=== PATIENT | female | born 1970 | race Caucasian/White ===

== ENCOUNTER 2021-01-03 15:20 | Outpatient (CLI) | payer OTHER, SELFPAY ==
--- NOTE | ~2021-01-03 | MM_ITS ---
EXAMINATION: MM screening [facility] BI [facility] HISTORY: Screening TECHNIQUE: Craniocaudal and mediolateral oblique 3-D tomosynthesis images were obtained and synthetic 2-D images were generated. CAD analysis was submitted and interpreted. COMPARISON: Comparison to multiple prior studies sequentially, with oldest reviewed study dated 12/04. BREAST PARENCHYMAL COMPOSITION: There are scattered areas of fibroglandular density. FINDINGS: There is no evidence of suspicious mass, calcification, or architectural distortion to sugg est malignancy in either breast. There has been no suspicious interval change. IMPRESSION: 1. No mammographic evidence of malignancy. 2. Recommend routine screening mammography in one year. BI-RADS Category 1: Negative Reviewed, dictated and finalized at location A.
== END 2021-01-03 15:21 | disposition home or self-care (01) ==
PROVIDERS: PCP Internal Medicine; Visit Provider Obstetrics & Gynecology
DX: Z12.31 Encounter for screening mammogram for malignant neoplasm of breast (principal)
CPT/HCPCS: 77063; 77067

== ENCOUNTER 2021-12-27 08:58 | Outpatient (CLI) | payer OTHER, SELFPAY ==
[2021-12-27 09:41] LABS: Alanine Aminotransferase 21 U/L (6-35); Albumin Level 4.3 g/dL (3.5-5.1); Alkaline Phosphatase 97 U/L (38-126); Anion Gap 5 mmol/L (8-16); Aspartate Amino Transferase 27 U/L (14-36); Bilirubin,Total 0.3 mg/dL (0.2-1.3); Blood Urea Nitrogen 9 mg/dL (7-17); Calcium 8.9 mg/dL (8.4-10.2); Carbon Dioxide 27 mmol/L (22-30); Chloride 106 mmol/L (98-107); Cholesterol 184 mg/dL (0-200); Creatine Kinase 34 U/L (30-135); Estimated Glomerular Filt Rate > 60; Glucose 116 mg/dL (65-110); HDL Direct 54 mg/dL; Potassium 4.8 mmol/L (3.4-5.0); Sodium 138 mmol/L (137-145); Triglycerides 188 mg/dL (<150)
[2021-12-27 09:51] LABS: LDL Cholesterol Direct 82 mg/dL
[2021-12-27 10:30] LABS: Appearance Urine Slightly Cloudy (Clear); Bilirubin Urine Negative (Negative); Glucose Urine UA Negative (Negative); Ketones Urine Negative (Negative); Leukocyte Esterase Ur Negative LEU/UL (Negative); Nitrate Urine Negative (Negative); Protein Urine Negative (Negative); Specific Grav Ur <= 1.005 (1.001-1.035); Urobilinogen Urine 0.2 mg/dL (<2.0); pH Urine 5.5 (5.0-9.0)
[2021-12-27 10:31] LABS: Add Urine Microscopic? YES; Blood Urine Trace-Intact (Negative); Color Urine Light Yellow (Yellow)
[2021-12-27 10:39] LABS: Bacteria Urine Trace /hpf; Mucus Urine Rare /lpf; RBC Urine 0-2 /hpf (0-2); Squamous Epithelial Cell Urine Few /hpf (Few); WBC Urine 0-3 /hpf
== END 2021-12-27 08:59 | disposition home or self-care (01) ==
LOC: ANHLAB 09:06
PROVIDERS: PCP Internal Medicine; Visit Provider Nurse Practitioner Family
DX: E78.5 Hyperlipidemia, unspecified (principal); R82.90 Unspecified abnormal findings in urine
CPT/HCPCS: 36415; 80053; 80061; 81001; 82550

== ENCOUNTER 2022-01-30 00:36 | Day surgery (SDC) | payer OTHER, SELFPAY ==
[2022-01-13 13:06] VITALS: BMI 39.2
[2022-01-30] MEDS: LACTATED RINGERS 1,000 ML 150 ML IV CONT (07:13)
[2022-01-30 07:30] VITALS: BP 146/85; PULSE 79; RESP 16; O2SAT 98
--- NOTE | 2022-01-30 07:44 | P.PNAN_ITS ---
Anes - Initial Pre Proc Eval Procedure: Operation Date: 01/30/22 08:00 Proposed Procedures p Screening Colonoscopy - Howard Tee MD Date/Time: 01/30/22 07:44 Surgeon: Howard Tee MD Pre Op Diagnosis: neoplasm screening Patient Data Age: 51 Gender: F Height: 1.52 m Weight: 100.1 kg Allergies Allergy/AdvReac Type Severity Reaction Status Date / Time No Known Allergies Allergy Unverified 01/30/22 07:00 Home Medications Medication Instructions Recorded Confirmed Type amlodipine 10 mg tablet 10 mg PO DAILY 01/13/22 01/13/22 History atorvastatin 10 mg tablet 10 mg PO DAILY 01/13/22 01/13/22 History cholecalciferol (vitamin D3) 25 25 mcg PO DAILY 01/13/22 01/13/22 History mcg (1,000 unit) tablet (Vitamin D3) tolterodine 2 mg tablet 4 mg PO DAILY 01/13/22 01/13/22 History Patient hx anesthesia problems: none Family hx anesthesia problems: none Results Review: All pre-operative results and documents have been reviewed as part of the pre-operative evaluation. [facility] Past Medical History Medical History (Updated 01/30/22 @ 07:45 by Gabriel Meza MD) Anemia HTN (hypertension) Hyperlipidemia Morbid obesity with BMI of 40.0-44.9, adult Social History Social History Smoking status: Never smoker Substance use type: does not use Living arrangements: with family Spiritual care concerns: No Anes - Eval Final PreProcedure Day of Procedure 01/30/22 07:44 Patient weight: obese Heart: regular rate and rhythm Lungs: clear to auscultation and normal air movement Airway: Mallampati scale class II Neurological: alert and oriented Last oral intake: >/= 8 hours ASA classification: III Emergent: no Anesthetic plan: proceed Anesthesia type and monitoring: general GIVS Results Review: All pre-operative results and documents have been reviewed as part of the pre- operative evaluation. Informed Consent: The patient's anesthetic plan and its attendant risks and benefits were discussed with the patient/family/POA. Questions were solicited and answers provided to the satisfaction of the patient/family/POA.
--- NOTE | 2022-01-30 07:49 | PM.IMHP ---
H&P: HPI History of Present Illness Date/Time: 01/30/22 07:49 Chief Complaint: Family history of colon cancer Narrative: this is 51-year-old white female patient presents for colonoscopy. Family history is significant her mother had colon cancer. Additionally family member such as her sister have had colon polyps. Patient presents today for surveillance colonoscopy. Patient reports that her current weight appetite and bowel movements are normal. Patient denies abdominal pain. She has had no bleeding. Family history as stated. Review of Systems Review of Systems: Review of systems noncontributory. [facility] Past Medical History Medical History (Updated 01/30/22 @ 07:50 by Howard Tee MD) Anemia HTN (hypertension) Hyperlipidemia Morbid obesity with BMI of 40.0-44.9, adult Social History Social History Smoking status: Never smoker Substance use type: does not use Living arrangements: with family Spiritual care concerns: No Meds Home Medications and Allergies Home Medications Medication Instructions Recorded Confirmed Type amlodipine 10 mg tablet 10 mg PO DAILY 01/13/22 01/13/22 History atorvastatin 10 mg tablet 10 mg PO DAILY 01/13/22 01/13/22 History cholecalciferol (vitamin D3) 25 25 mcg PO DAILY 01/13/22 01/13/22 History mcg (1,000 unit) tablet (Vitamin D3) tolterodine 2 mg tablet 4 mg PO DAILY 01/13/22 01/13/22 History Allergies Allergy/AdvReac Type Severity Reaction Status Date / Time No Known Allergies Allergy Unverified 01/30/22 07:00 Exam Narrative: Physical exam reveals patient to be alert. Vital signs stable. HEENT exam is unremarkable. Patient is anicteric. Lungs are clear to auscultation and percussion. Heart is without murmur or extra sounds. Abdominal exam bowel sounds present soft nontender with no organomegaly. Digital external rectal exam is normal. Assessment and Plan Assessment and plan (1) Family history of colon cancer in mother: Code(s): Z80.0 - Family history of malignant neoplasm of digestive organs Status: Acute Assessment and Plan: Patient's mother had colon cancer. Her sister had colon polyps. Plan is for surveillance colonoscopy now consider this a 5 year intervals in the future. Further recommendations may be given after endoscopy.
[2022-01-30 08:13] VITALS: BP 118/74; PULSE 69; RESP 21; O2SAT 98
[2022-01-30 08:23] VITALS: BP 134/84; PULSE 70; RESP 16; O2SAT 98
[2022-01-30 08:33] VITALS: BP 140/82; PULSE 68; RESP 20; O2SAT 100
== END 2022-01-30 08:49 | disposition home or self-care (01) ==
PROVIDERS: PCP Internal Medicine; Visit Provider Internal Medicine Gastroenterology
PROC: 0DJD8ZZ Inspection of Lower Intestinal Tract, Via Natural or Artificial Opening Endoscopic (ICD-10-PCS; CPT 45378; principal; 2022-01-30 08:00)
DX: Z12.11 Encounter for screening for malignant neoplasm of colon (principal); Z80.0 Family history of malignant neoplasm of digestive organs; K63.5 Polyp of colon; D64.9 Anemia, unspecified; I10 Essential (primary) hypertension; E78.5 Hyperlipidemia, unspecified; E66.9 Obesity, unspecified; Z68.41 Body mass index [BMI] 40.0-44.9, adult
CPT/HCPCS: 45385; 88305; J2704; J7120

== ENCOUNTER 2022-02-13 08:52 | Outpatient (CLI) | payer OTHER, SELFPAY ==
--- NOTE | ~2022-02-13 | MM_ITS ---
EXAMINATION: MM screening [facility] BI w reed HISTORY: Screening mammogram TECHNIQUE: Craniocaudal and mediolateral oblique 3-D tomosynthesis images were obtained and synthetic 2-D images were generated. CAD analysis was submitted and interpreted. COMPARISON: 01/03/2021, 07/15/2019, 05/13/2018 BREAST PARENCHYMAL COMPOSITION: There are scattered areas of fibroglandular density. FINDINGS: There is no suspicious mass, calcification, or architectural distortion to suggest malignan cy in either breast. There has been no suspicious interval change. IMPRESSION: 1. No mammographic evidence of malignancy. 2. Recommend routine screening mammography in one year. BI-RADS Category 1: Negative Reviewed, dictated and finalized at location A.
== END 2022-02-13 08:53 | disposition home or self-care (01) ==
LOC: ANHIMG 08:53
PROVIDERS: PCP Internal Medicine; Visit Provider Obstetrics & Gynecology
DX: Z12.31 Encounter for screening mammogram for malignant neoplasm of breast (principal)
CPT/HCPCS: 77063; 77067

== ENCOUNTER 2023-04-30 14:48 | Outpatient (CLI) | payer OTHER, SELFPAY ==
--- NOTE | ~2023-04-30 | MM_ITS ---
EXAMINATION: MM screening [facility] HISTORY: Screening mammogram TECHNIQUE: Craniocaudal and mediolateral oblique 3-D tomosynthesis images were obtained and synthetic 2-D images were generated. CAD analysis was submitted and interpreted. COMPARISON: 02/13/2022, 01/03/2021, 07/15/2019 bilateral screening mammogram examinations BREAST PARENCHYMAL COMPOSITION: There are scattered areas of fibroglandular density. FINDINGS: There is no evidence of suspicious mass, calcification, or architectural distortion to sugg est malignancy in either breast. There has been no suspicious interval change. IMPRESSION: 1. No mammographic evidence of malignancy. 2. Recommend routine screening mammography in one year. BI-RADS Category 1: Negative. Reviewed, dictated and finalized at location A.
== END 2023-04-30 14:49 | disposition home or self-care (01) ==
LOC: ANHIMG 14:52
PROVIDERS: PCP Internal Medicine; Visit Provider Obstetrics & Gynecology
DX: Z12.31 Encounter for screening mammogram for malignant neoplasm of breast (principal)
CPT/HCPCS: 77063; 77067

== ENCOUNTER 2024-06-19 09:22 | Outpatient (CLI) | payer OTHER, SELFPAY ==
--- NOTE | ~2024-06-19 | MM_ITS ---
EXAMINATION: MM screening [facility] HISTORY: Screening TECHNIQUE: Craniocaudal and mediolateral oblique 3-D tomosynthesis images were obtained and synthetic 2-D images were generated. CAD analysis was submitted and interpreted. COMPARISON: Comparison to multiple prior studies sequentially, with oldest reviewed study dated 09/2016. BREAST PARENCHYMAL COMPOSITION: Not dense: There are scattered areas of fibroglandular density. FINDINGS: There is no evidence of suspicious mass, calcification, or architectural distortion to sugg est malignancy in either breast. There has been no suspicious interval change. IMPRESSION: 1. No mammographic evidence of malignancy. 2. Recommend routine screening mammography in one year. BI-RADS Category 1: Negative Reviewed, dictated and finalized at location B. P PREPARER
== END 2024-06-19 09:23 | disposition home or self-care (01) ==
LOC: ANHIMG 09:22
PROVIDERS: PCP Internal Medicine; Visit Provider Obstetrics & Gynecology
DX: Z12.31 Encounter for screening mammogram for malignant neoplasm of breast (principal)
CPT/HCPCS: 77063; 77067

== ENCOUNTER 2025-06-24 09:19 | Outpatient (CLI) | payer OTHER, SELFPAY ==
--- NOTE | ~2025-06-24 | MM_ITS ---
EXAMINATION: MM screening anthony BI w reed HISTORY: Screening TECHNIQUE: Craniocaudal and mediolateral oblique 3-D tomosynthesis images were obtained and synthetic 2-D images were generated. CAD analysis was submitted and interpreted. COMPARISON: Comparison to multiple prior studies sequentially, with oldest reviewed study dated , 07/15/2019 BREAST PARENCHYMAL COMPOSITION: Not Dense: There are scattered areas of fibroglandular density. FINDINGS: There is no evidence of suspicious mass, calcification, or architectural distortion to suggest malignancy in either breast. IMPRESSION: 1. No mammographic evidence of malignancy. 2. Recommend routine screening mammography in one year. BI-RADS Category 1: Negative Reviewed, dictated and finalized at location A. HER
--- OUTSIDE RECORDS SUMMARY | 2025-06-24 10:21 | XMS_ITS | Clinical Summary ---
Author Organization [facility] Address [address] [place] [address] Care Team Providers Care Wheel Cleaner Name Role Phone Unavailable Primary Care Provider Unavailabl e Social History Tobacco Use Types Packs/Day Years Used Date Smoking Tobacco: Never Assessed Comments Unknown Sex and Gender Information Value Date Recorded Sex Assigned at Not on file Legal Sex Female 10:31 AM SPORTS ACTIVITIES FOUL JUDGE Gender Identity Not on file Sexual Orientation Not on file Plan of Treatment Health Maintenance Due Date Last Done Comments Hepatitis C Virus (HCV) Screening 1970 TdaP Immunization 1970 Hepatitis B Immunization (1 of 3 - 19+ 3-dose series) 1989 Pap Smear 09/11/1991 Cervical Cancer Screening (CCS) 2000 HPV/Cotest 2000 Cologuard 09/11/2015 Colonoscopy 09/11/2015 Colorectal Cancer Screening 09/11/2015 Immunochemical Fecal Occult Blood 09/11/2015 Pneumococcal Immunization (5 0+ years) (1 of 1 - PCV) 2020 Zoster Immunization (1 of 2) 2020 Influenza Immunization (#1) 2025 SARS-COV-2 Immunization ( - season) 2025 Respiratory Syncytial Virus (RSV) Immunization (Adult) (1 - 1-dose 75+ series) 2045 Human Papillomavirus (HPV) Immunization Aged Out No longer eligible b ased on patient's age to complete this topic Meningococcal Immunization (ACWY) Aged Out No longer eligible based on patient's age to complete this topic Rotavirus Immunization Aged Out No lo nger eligible based on patient's age to complete this topic
--- OUTSIDE RECORDS SUMMARY | 2025-06-24 10:21 | XMS_ITS | Encounter Summary ---
Author Organization [facility] Address On license of [facility] [place] [address] Care Team Providers Care Coding Compliance Specialist Name Role Phone Danita Mari Primary Care Provider [phone] Encounter Details Date Type Department Care Team (Late st Contact Info) Description 01/11/2021 MyChart Message Enc [facility] Medical Group Family & Internal Medicine [facility] [address] [place] [address] Danita Mari FNP [address] [place], [place] [id number] Follow Up/Update Social History Tobacco Use Types Packs/Day Years Used Date Smoking Tobacco: Never Smokeless Tobacco: Never Alcohol Use Standard Drinks/Week Comments Not Currently 0 (1 standard drink = 0.6 oz pur e alcohol) AUDIT-C Answer Date Recorded Q1: How often do you have a drink containing alc ohol? Never 10/18/2020 Average Number of Drinks Not on file 021 Frequency of Binge Drinking Not on file 10/07 PHQ-2 Answer Date Recorded PHQ-2 Score - If the patient scores above 3, please move on to questions 3-9 0 10/18/2020 Comments No Sex and Gender Information Value Date Recorded Sex Assigned at Female 08/08/2024 12:58 PM GATEHOUSE ATTENDANT Legal Sex Female 5:36 PM CDT Gender Identity Not on file Sexual Orientation Not on file COVID-19 Exposure Response Date Recorded In the last month, have you been in contact with someone who was confirmed or suspected to have Coronavirus / COVID-19? No / Unsure 01/06/2021 7:05 AM CDT documented as of this encounter Plan of Treatment Upcoming Encounters Date Type Department Care Team (Late st Contact Info) Description 07/17/2025 12:15 PM GATEHOUSE ATTENDANT Office Visit [facility] [place] [address] [place] [address] Karolina Ley PA-C [address] [facility], [address] [place] [address] documented as of this encounter Visit Diagnoses Not on filedocumented in this encounter Care Teams Coding Compliance Specialist Relationship Specialty Start Date End Date Danita Mari FNP [address] [place] [address] PCP - General Nurse Practitioner Family 08/20/20 documented as of this encounter
--- OUTSIDE RECORDS SUMMARY | 2025-06-24 10:21 | XMS_ITS | Clinical Summary ---
Author Organization [facility] Address [address] [place] [address] Care Team Providers Care Life Educator Name Role Phone Danita Mari MEHRAN Primary Care Provider [phone] Allergies No known active allergies Medications Cholecalciferol (VITAMIN D) 50 MCG (1999 UT) Tab Take 1.5 tablets (3,000 Units total) by mouth. Active Multiple Vitamins-Minerals (HAIR SKIN AND NAILS FORMULA OR) Ac tive amLODIPine (NORVASC) 10 MG tabletIndications :Essential hypertension TAKE 1 TABLET(10 MG) BY MOUTH EVERY EVENING 90 tablet 3 4 Active tirzepatide (MOUNJARO) 5 MG/0.5ML injectionIndicati ons:Diabetes Mellitus Inject 5 mg into the skin once a week. Indications: Diabetes Active progesterone (PROMETRIUM) 100 MG capsule Take 2 capsules (200 mg total) by mouth daily. Active spironolactone (ALDACTONE) 25 MG tablet TAKE 1 TABLET BY MOUTH TWICE DAILY 180 tablet 5 Active Active Problems Problem Noted Date Diagnosed Date Obstructive sleep apnea 04/18/2023 Pure hypercholesterolemia 04/17/2023 Lower leg edema 04/17/2023 Abnormality of shape of nail 04/12/2023 Atypical chest pain 11/23/2020 Family history of cardiac disorder 11/23/2020 BMI 45.0-49.9, adult 10/20/2020 Essential hypertension 10/20/2020 Vitamin D deficiency 11/17/2016 Elevated glucose 11/16/2016 Overactive bladder 11/06/2016 Precordial pain Resolved Problems Problem Noted Date Diagnosed Date Resolved Date Dyspnea on exertion 11/23/2020 11/12/19 Screening cholesterol level 11/06/2016 10/25/2020 Rash 11/06/2016 10/20/2020 Bronchitis 08/12/2013 10/20/2020 Onychomycosis of toenail 04/29/2012 Hypertension 11/11/2021 Immunizations Immunization Administration Dates Next Due Tdap (Adacel) 11/11/2021 Family History Medical History Relation Comments Hypertension Father Stent Cardiac Maternal Grandmother Cancer Mother colon Heart Attack Paternal Grandfather Relation Status Comments Father Alive Maternal Grandfather (Age 71) Maternal Grandmother (Age 73) Mother Alive Paternal Grandfather (Age 70) Paternal Grandmother (Age 82) Sister Alive Social History Tobacco Use Types Packs/Day Years Used Date Smoking Tobacco: Never Smokeless Tobacco: Never Tobacco Cessation:Counseling Given: Not Answered Alcohol Use Standard Drinks/Week Comments Not Currently 0 (1 standard drink = 0.6 oz pur e alcohol) AUDIT-C Answer Date Recorded Q1: How often do you have a drink containing alc ohol? Never 10/18/2020 Average Number of Drinks Not on file 021 Frequency of Binge Drinking Not on file 10/07 PHQ-2 Answer Date Recorded Patient Health Questionnaire-2 Score 0 04/12/2023 Comments No Sex and Gender Information Value Date Recorded Sex Assigned at Female 08/08/2024 12:58 PM STRIP POLISHER Legal Sex Female 5:36 PM CDT Gender Identity Not on file Sexual Orientation Not on file Last Filed Vital Signs Vital Sign Reading Time Taken Comments Blood Pressure 132/80 08/08/2024 1:06 PM STRIP POLISHER Pulse 88 08/08/2024 1:06 PM STRIP POLISHER Temperature 36.6 C (97.8 F) 04/12/2023 3:13 PM CDT Respiratory Rate 16 04/12/2023 3:13 PM CDT Oxygen Saturation 97% 08/08/2024 1:06 PM STRIP POLISHER Inhaled Oxygen Concentration - - Weight 101.2 kg (223 lb) 08/08/2024 1:06 PM STRIP POLISHER Height 152.4 cm (5') 08/08/2024 1:06 PM STRIP POLISHER Body Mass Index 43.55 08/08/2024 1:06 PM STRIP POLISHER Plan of Treatment Upcoming Encounters Date Type Department Care Team (Late st Contact Info) Description 07/17/2025 12:15 PM STRIP POLISHER Office Visit [facility] [facility] [place] [address] [place] [address] Karolina Ley PA-C 3 [facility], [address] [place], [place] [id number] Health Maintenance Due Date Last Done Comments Cervical Cancer Screening Pap Smear (Age 30 to 64) Every 3 Years 1970 Annual Physical 1973 Hepatitis B Vaccines (1 of 3 - 19+ 3-dose series) 1989 Cervical Cancer Screening Pap with HPV Testing (Age 30 to 64) Every 5 Years 2000 Cervical Cancer Screening with HPV 2000 Pneumococcal Vaccine: 50+ Years (1 of 1 - PCV) 2020 Zoster Vaccines (1 of 2) 2020 PHQ-2 (Physician [place]) 07/09/2024 COVID-19 Vaccine (3 - season) 2025 03/22/2021, 03/01/2021 Influenza Adult (#1) 2025 Mammogram Screening 06/19/2026 06/19/2024, 04/30/2023, 02/13/2022, Additional history exists DTaP, Tdap and Td Vaccines (2 - Td or Tdap) 11/12/2031 11/11/2021 Colorectal Cancer Screening Colonoscopy (10 Years) 01/31/2032 01/30/2022 Hepatitis C Completed 11/23/2021 Hepatitis A Vaccines Aged Out No long er eligible based on patient's age to complete this topic Meningococcal B Vaccine Aged Out No l onger eligible based on patient's age to complete this topic Meningococcal Vaccine Aged Out No orladno yinka eligible based on patient's age to complete this topic RSV Immunizations Under 20 Months Aged Out No longer eligible based on patient's age to complete this topic Procedures Procedure Name Priority Date/Time Associated Diagnosis Comments MAMMOGRAM GENERIC (SCAN ORDER) 06/19/2024 COLONOSCOPY GENERIC (SCAN ORDER) 01/30/2022 HEPATITIS C ANTIBODY Routine 11/23/2021 7:42 AM CDT Need for hepatitis C screening test from Last 3 Months or Most Recently Relevant to Health Maintenance Results * MAMMOGRAM GENERIC (SCAN ORDER) (06/19/2024) Anatomical Region Laterality Modality Other 06/19/2024 us [facility] Scanned SCANNING Final Resu lt * COLONOSCOPY GENERIC (01/30/2022) 01/30/2022 Narrative 01/30/2022 Ordered by an unspecified provider. us Documents Scanned SCANNING Final Result * HEPATITIS C AB ([facility] ONLY) (11/23/2021 7:42 AM CDT) HEPATITIS C AB NON-REACTI VE NON-REACT IRVIN 11/23/2021 9:15 PM CDT [facility] Comment: ANTIBODIES TO HCV NOT DETECTED. DOES NOT EXCLUDE THE POSSIBILITY OF EXPOSURE TO HCV. 11/23/2021 7:42 AM CDT us [facility] Final Result [facility] [address] [place] [address], [id number] from Last 3 Months or Most Recently Relevant to Health Maintenance Insurance [facility] Care Teams Life Educator Relationship Specialty Start Date End Date Danita Mari FNP [address] [place] [id number] PCP - General Nurse Practitioner Family 08/20/20
--- OUTSIDE RECORDS SUMMARY | 2025-06-24 10:21 | XMS_ITS | Encounter Summary ---
Author Organization [facility] Address [facility] [place] [address] Care Team Providers Care Computing Systems Mechanic Name Role Phone Danita Mari Primary Care Provider Encounter Details Date Type Department Care Team (Late st Contact Info) Description 11/12/2020 MyChart Message Enc [facility] Medical Group Family & Internal Medicine [facility] [address] [place] [address] Danita Mari FNP [address] [place], [place] [phone] RE: Question Social History Tobacco Use Types Packs/Day Years [...] on to questions 3-9 0 10/18/2020 Comments Unknown Sex and Gender Information Value Date Recorded Sex Assigned at Female 08/08/2024 12:58 PM CARROTER Legal Sex Female 5:36 PM CDT Gender Identity Not on file Sexual Orientation Not on file COVID-19 Exposure Response Date Recorded In the last month, have you been in contact with someone who was confirmed or suspected to have Coronavirus / COVID-19? No / Unsure 11/03/2020 10:10 AM CDT documented as of this encounter Plan of Treatment Upcoming Encounters Date Type Department Care Team (Late st Contact Info) Description 07/17/2025 12:15 PM CARROTER Office Visit [facility] [place] [address] [place] [address] Karolina Ley PA-C 3 [facility], [address] [place] [address] documented as of this encounter Visit Diagnoses Not on filedocumented in this encounter Care Teams Computing Systems Mechanic Relationship Specialty Start Date End Date Danita Mari FNP [address] [place] [phone] PCP - General Nurse Practitioner Family 08/20/20 documented as of this encounter
--- OUTSIDE RECORDS SUMMARY | 2025-06-24 10:21 | XMS_ITS | Encounter Summary ---
Author Organization [facility] Address [facility] [place] [address] Care Team Providers Care Farmer Cash Grain Name Role Phone Danita Mari Primary Care Provider [phone] Encounter Details Date Type Department Care Team (Late st Contact Info) Description 05/13/2018 Abstract HEALTH INFO [facility] Scanned, Documents Social History Tobacco Use Types Packs/Day Years Used Date Smoking Tobacco: Never Assessed Comments Unknown Sex and Gender Information Value Date Recorded Sex Assigned at Female 08/08/2024 12:58 PM ELECTRONIC PUBLISHER Legal Sex Female 5:36 PM CDT Gender Identity Not on file Sexual Orientation Not on file documented as of this encounter Plan of Treatment Upcoming Encounters Date Type Department Care Team (Late st Contact Info) Description 07/17/2025 12:15 PM ELECTRONIC PUBLISHER Office Visit [facility] [facility] [place] [address] [place], [place] [address] Karolina Ley PA-C 3 [facility], [address] [place] [address] documented as of this encounter Visit Diagnoses Not on filedocumented in this encounter Care Teams Farmer Cash Grain Relationship Specialty Start Date End Date Danita Mari FNP [address] [place] [id number] PCP - General Nurse Practitioner Family 08/20/20 documented as of this encounter
--- OUTSIDE RECORDS SUMMARY | 2025-06-24 10:22 | XMS_ITS | Encounter Summary ---
Author Organization [facility] Address [facility] [place] [address] Care Team Providers Care Epic Prelude Analyst Name Role Phone Danita Mari MEHRAN Primary Care Provider [phone] Encounter Details Date Type Department Care Team ([facility] Contact Info) Description 04/03/2023 Abstract [facility] [address] Stefanie Tang [place] Social History Tobacco Use Types Packs/Day Years Used Date Smoking Tobacco: Never Smokeless Tobacco: Never Alcohol Use Standard Drinks/Week Comments Not Currently 0 (1 standard drink = 0.6 oz pur e alcohol) AUDIT-C Answer Date Recorded Q1: How often do you have a drink containing alc ohol? Never 10/18/2020 Average Number of Drinks Not on file Frequency of Binge Drinking Not on file 10/07 PHQ-2 Answer Date Recorded PHQ-2 Score - If the patient scores above 3, please move on to questions 3-9 0 11/11/2021 Comments No Sex and Gender Information Value Date Recorded Sex Assigned at Female 08/08/2024 12:58 PM COTTON STOMPER Legal Sex Female 5:36 PM CDT Gender Identity Not on file Sexual Orientation Not on file documented as of this encounter Plan of Treatment Upcoming Encounters Date Type Department Care Team (Late Contact Info) Description 07/17/2025 12:15 PM COTTON STOMPER [facility] [address] Karolina Ley PA-C 3 [facility], [address] [place] [phone] documented as of this encounter Procedures Procedure Name Priority Date/Time Associated Diagnosis Comments BASIC METABOLIC PANEL Routine 11/28/2023 BASIC METABOLIC PANEL Routine 10/22/2023 BASIC METABOLIC PANEL Routine 03/09/2023 documented in this encounter Results * BASIC METABOLIC PANEL (11/28/2023) SODIUM S/P/B 138 POTASSIUM S/P/B 4.4 CO2 28 CHLORIDE S/P/B 102 GLUCOSE 141 mg/dL CALCIUM S/P/B 9.6 BUN 14 CREATININE S/P/B 0.87 0.5 - 1.0 EGFR NON-AFR. AMER. 80 <=90 11/28/2023 us Default History Genericprovider LABORATORY Final Result * (ABNORMAL) BASIC METABOLIC PANEL (10/22/2023) SODIUM S/P/B 137 POTASSIUM S/P/B 4.1 CO2 31 CHLORIDE S/P/B 100 GLUCOSE 105 mg/dL CALCIUM S/P/B 9.9 BUN 11 CREATININE S/P/B 0.76 0.5 - 1.0 EGFR NON-AFR. AMER. 94(A) <=90 10/22/2023 us Default History Genericprovider LABORATORY Final Result * (ABNORMAL) BASIC METABOLIC PANEL (03/09/2023) SODIUM S/P/B 138 POTASSIUM S/P/B 3.9 CO2 28 CHLORIDE S/P/B 104 GLUCOSE 134 mg/dL CALCIUM S/P/B 9.1 BUN 14 CREATININE S/P/B 0.72 0.5 - 1.0 EGFR NON-AFR. AMER. 101(A) <=90 03/09/2023 us Default History Genericprovider LABORATORY Final Result documented in this encounter Visit Diagnoses Not on filedocumented in this encounter Additional Health Concerns Assessment Noted Time PHQ-9 Depression Total Score: 0 11/12/19 22 10:07 AM CDT documented as of this encounter Care Teams Epic Prelude Analyst Relationship Specialty Start Date End Date Danita Mari FNP [address] [place] [phone] PCP - General Nurse Practitioner Family 08/20/20 documented as of this encounter
--- OUTSIDE RECORDS SUMMARY | 2025-06-24 10:22 | XMS_ITS | Encounter Summary ---
Author Organization [facility] Address [facility] [place] [address] Care Team Providers Care Tetryl Boiling Tub Operator Name Role Phone Danita Mari MEHRAN Primary Care Provider [phone] Encounter Details Date Type Department Care Team (Late st Contact Info) Description 01/05/2023 Net Zero [employer] Message Enc [facility] THREE [facility] [address] [place], [place] [id number] Deb Lujan MD Three [facility]. [facility] [address] [place], [place] [id number] hydrochlorothiazide Social History Tobacco Use Types Packs/Day Years [...] Sex Assigned at Female 08/08/2024 12:58 PM ST[facility]CCO MASON Legal Sex Female 5:36 PM CDT Gender Identity Not on file Sexual Orientation Not on file COVID-19 Exposure Response Date Recorded In the last 10 days, have yo u been in contact with someone who was confirmed or suspected to have Coronavirus/COVID-19? No / Unsure 12/13/2022 10:57 AM CDT documented as of this encounter Progress Notes * Anne Nath RN - 01/05/2023 8:49 AM CDT . documented in this encounter Plan of Treatment Upcoming Encounters Date Type Department Care Team (Late st Contact Info) Description 07/17/2025 12:15 PM [facility] Office Visit [facility] THREE [facility] [place] [address] [place] [address] Karolina Ley PA-C [address] [facility], [address] [place] [address] documented as of this encounter Visit Diagnoses Not on filedocumented in this encounter Additional Health Concerns Assessment Noted Time PHQ-9 Depression Total Score: 0 11/12/19 22 10:07 AM CDT documented as of this encounter Care Teams Tetryl Boiling Tub Operator Relationship Specialty Start Date End Date Danita Mari FNP [address] [place] [id number] PCP - General Nurse Practitioner Family 08/20/20 documented as of this encounter
--- OUTSIDE RECORDS SUMMARY | 2025-06-24 10:22 | XMS_ITS | Encounter Summary ---
Author Organization [facility] Address [facility] [place] [address] Care Team Providers Care Epidemiology Intern Name Role Phone Danita Mari MEHRAN Primary Care Provider [phone] Encounter Details Date Type Department Care Team (Late Contact Info) Description 12/27/2022 Abstract [facility] [address] Stefanie Tang MA Social History Tobacco Use [...] Sex Assigned at Female 08/08/2024 12:58 PM BI SPECIALIST Legal Sex Female 5:36 PM CDT Gender [...] (Late Contact Info) Description 07/17/2025 12:15 PM BI SPECIALIST Office Visit [facility] THREE [facility] [place] [address] [place] [address] Karolina Ley PA-C [address] [facility], [address] [place] [address] documented as of this encounter Procedures Procedure Name Priority Date/Time Associated Diagnosis Comments BASIC METABOLIC PANEL Routine 02/09/2023 HEMOGLOBIN, GLYCOSYLATED Routine 12/26/2022 BNP Routine 12/26/2022 COMPREHENSIVE METABOLIC PANEL Routine 12/26/2022 LIPID PANEL Routine 12/26/2022 documented in this encounter Results * BASIC METABOLIC PANEL (02/09/2023) SODIUM S/P/B 138 POTASSIUM S/P/B 3.9 CO2 28 CHLORIDE S/P/B 101 GLUCOSE 121 mg/dL CALCIUM S/P/B 9.6 BUN 12 CREATININE S/P/B 0.83 0.5 - 1.0 EGFR NON-AFR. AMER. 86 <=90 02/09/2023 us Default History Genericprovider LABORATORY Final Result * BNP (12/26/2022) B TYPE NATRIURETIC PEPTIDE 7 Narrative Resulting Agency Comment us Default History Genericprovider LABORATORY Edited Result - Final * COMPREHENSIVE METABOLIC PANEL (12/26/2022) SODIUM S/P/B 138 GLUCOSE 119 mg/dL BUN 13 CREATININE S/P/B 0.68 0.5 - 1.0 CALCIUM S/P/B 9.6 POTASSIUM S/P/B 3.9 CHLORIDE S/P/B 100 GFR ESTIMATE 105 Narrative Resulting Agency Comment us Default History Genericprovider LABORATORY Edited Result - Final * LIPID PANEL (12/26/2022) CHOLESTEROL 153 TRIGLYCERIDES 167 HDL 56 LDL (CALCULATED) 72 NON HDL CHOLESTEROL 97 Narrative Resulting Agency Comment us Default History Genericprovider LABORATORY Edited Result - Final * HEMOGLOBIN, GLYCOSYLATED (12/26/2022) HGB A1C 6.0 % Narrative Resulting Agency Comment us Default History Genericprovider LABORATORY Edited Result - Final documented in this encounter Visit Diagnoses Not on filedocumented in this encounter Additional Health Concerns Assessment Noted Time PHQ-9 Depression Total Score: 0 11/12/19 22 10:07 AM CDT documented as of this encounter Care Teams Epidemiology Intern Relationship Specialty Start Date End Date Danita Mari FNP [address] [place] [id number] PCP - General Nurse Practitioner Family 08/20/20 documented as of this encounter
== END 2025-06-24 09:20 | disposition home or self-care (01) ==
LOC: ANHFOHIMG 09:22
PROVIDERS: PCP Internal Medicine; Visit Provider Obstetrics & Gynecology
DX: Z12.31 Encounter for screening mammogram for malignant neoplasm of breast (principal)
CPT/HCPCS: 77063; 77067